=== PATIENT | female | born 1975 | race Caucasian/White ===

== ENCOUNTER 2017-01-18 19:31 | Emergency (ER) | payer OTHER ==
[~2017-01-18] VITALS: Ht 170.2 cm; Wt 72.6 kg
[2017-01-18 19:34] VITALS: BP 137/69
--- NOTE | 2017-01-18 19:42 | PHYS DOC ---
Adult General Chief Complaint Chief Complaint: WOUND CHECK HPI HPI Patient is a 41 year old female presents the ED complaining of injury to right finger 1 day. Patient states yesterday she cut her finger with an envelope and woke up today with drainage and increased redness surrounding the cut. Describes as sharp. Rates as 2/10. Denies decreased ROM, fever, nausea/vomiting , dizziness, abdominal pain, chest pain, shortness breath or weakness. Review of Systems Review of Systems Constitutional: Denies fever or chills [] Eyes: Denies change in visual acuity, redness, or eye pain [] HENT: Denies nasal congestion or sore throat [] Respiratory: Denies cough or shortness of breath [] Cardiovascular: No additional information not addressed in HPI [] GI: Denies abdominal pain, nausea, vomiting, bloody stools or diarrhea [] : Denies dysuria or hematuria [] Musculoskeletal: Denies back pain or joint pain [] Integument: Denies rash or skin lesions [] Neurologic: Denies headache, focal weakness or sensory changes [] Endocrine: Denies polyuria or polydipsia [] Current Medications Current Medications Current Medications Medications (Trade) Dose Ordered Sig/Monica Start Time Stop Time Status Last Admin Dose Admin Tetanus/ Diphtheria Toxoids (Tenivac Syringe) 0.5 ml STK-MED ONCE 01/18/17 19:59 01/18/17 20:08 NV Allergies Allergies Allergies Coded Allergies Type Severity Reaction Last Updated Verified No Known Drug Allergies 01/18/17 No Physical Exam Physical Exam Constitutional: Well developed, well nourished, no acute distress, non-toxic appearance. [] HENT: Normocephalic, atraumatic, bilateral external ears normal, oropharynx moist, no oral exudates, nose normal. [] Eyes: PERRLA, EOMI, conjunctiva normal, no discharge. [] Neck: Normal range of motion, no tenderness, supple, no stridor. [] Cardiovascular:Heart rate regular rhythm, no murmur [] Lungs & Thorax: Bilateral breath sounds clear to auscultation [] Abdomen: Bowel sounds normal, soft, no tenderness, no masses, no pulsatile masses. [] Skin: Warm, dry, no rash. 0.5 CM CUT TO RIGHT DORSAL INDEX FINGER WITH SURROUNDING ERYTEMA AND MILD PURULENT DRAINAGE.[] Back: No tenderness, no CVA tenderness. [] Extremities: No tenderness, no cyanosis, no clubbing, ROM intact, no edema. [] Neurologic: Alert and oriented X 3, normal motor function, normal sensory function, no focal deficits noted. [] Psychologic: Affect normal, judgement normal, mood normal. [] Current Patient Data Vital Signs Vital Signs Date Time Temp Pulse Resp B/P (MAP) Pulse Ox O2 Delivery O2 Flow Rate FiO2 01/18/17 19:34 98.1 115 16 97 Room Air 98.1 EKG EKG [] Radiology/Procedures Radiology/Procedures [] Course & Med Decision Making Course & Med Decision Making Pertinent Labs and Imaging studies reviewed. (See chart for details) []Wound clean and dressed. Will treat outpatient with Bactrim. Tetanus updated in ED. Vitals stable, no acute distress. Discussed follow-up with patient for wound re-evaluation in 3 days. Discussed reasons to return to the ED sooner. Patient understands and agrees with plan. Dragon Disclaimer Dragon Disclaimer This electronic medical record was generated, in whole or in part, using a voice recognition dictation system. Departure Departure Impression: Primary Impression: Cellulitis, finger Disposition: HOME, SELF-CARE Condition: STABLE Referrals: MATT LE MD Patient Instructions: Cellulitis Scripts Sulfamethoxazole/Trimethoprim (BACTRIM DS TABLET) 1 Each Tablet 1 TAB PO BID, #20 TAB Prov: LUZ MARIA KENNEDY 01/18/17 LUZ MARIA KENNEDY Jan 18, 2017 19:42
[2017-01-18] MEDS ORDERED: SULF1TAB24 PO (19:45)
[2017-01-18] MEDS ORDERED: TETANUS AND DIPHTHERIA TOX/PF 0.5 ML DISP.SYRIN. VAX IM ONE ×2 (19:45→19:59)
== END 2017-01-18 20:07 | disposition home or self-care (01) ==
LOC: ER 19:31
DX: L03.011 Cellulitis of right finger (principal)
CPT/HCPCS: 90471; 90714; 99283-25

== ENCOUNTER 2018-10-03 09:57 | Emergency (ER) | payer MEDICAID, OTHER ==
[~2018-10-03] VITALS: Ht 170.2 cm; Wt 77.1 kg
[~2018-10-03 09:57] MED LIST: SULF1TAB24 PO
[2018-10-03] MEDS ORDERED: CLINDAMYCIN 600MG PREMIX 50 ML IV ONE (10:45)
[2018-10-03] MEDS ORDERED: methylPREDNISolone SOD SUCC PF 125 MG/2 ML VIAL. IV ONE ×2 (10:45→12:30)
[2018-10-03] MEDS ORDERED: MORPHINE SULFATE 4 MG/ML VIAL. IV ONE ×2 (10:45→13:00)
[2018-10-03] MEDS ORDERED: IV NORMAL SALINE 1000ML BAG 1,000 ML IV ONE (10:45)
[2018-10-03 11:09] LABS: BASO # 0.1 x10^3/uL (0.0-0.2); BASO % 1 % (0-3); EOS # 0.1 x10^3/uL (0.0-0.7); EOS % 1 % (0-3); HEMATOCRIT 35.3 % (36.0-47.0); HEMOGLOBIN 12.3 g/dL (12.0-15.5); LYMPH # 1.4 x10^3/uL (1.0-4.8); LYMPH % 15 % (24-48); MEAN CORPUSCULAR HEMOGLOBIN 34 pg (25-35); MEAN CORPUSCULAR HGB CONC 35 g/dL (31-37); MEAN CORPUSCULAR VOLUME 97 fL (79-100); MONO # 0.7 x10^3/uL (0.0-1.1); MONO % 7 % (0-9); NEUT # 7.2 x10^3uL (1.8-7.7); NEUT % 76 % (31-73); PLATELET COUNT 239 x10^3/uL (140-400); RED BLOOD COUNT 3.63 x10^6/uL (3.50-5.40); RED CELL DISTRIBUTION WIDTH 12.6 % (11.5-14.5); WHITE BLOOD COUNT 9.5 x10^3/uL (4.0-11.0)
[2018-10-03 11:19] LABS: CREATININE 0.6 mg/dL (0.6-1.0); GFR 110.7; POTASSIUM 3.7 mmol/L (3.5-5.1)
[2018-10-03 11:26] LABS: PROTHROMBIN TIME PATIENT 11.9 SEC (11.7-14.0)
[2018-10-03 11:31] LABS: ALBUMIN 3.4 g/dL (3.4-5.0); TOTAL BILIRUBIN 0.5 mg/dL (0.2-1.0); TOTAL PROTEIN 6.9 g/dL (6.4-8.2)
[2018-10-03] MEDS ORDERED: IOHEXOL 300 MG/ML 100ML VIAL. IV ONE (11:45)
[2018-10-03] MEDS ORDERED: CONTRAST GIVEN. MC PRN (11:45)
[2018-10-03 12:54] VITALS: BP 123/73
--- NOTE | 2018-10-03 12:59 | RAD ---
Maxillofacial CT with contrast TECHNIQUE: Helical CT imaging of the maxilla facial structures with 75 mL Omnipaque 300 intravenous contrast. HISTORY: Infection right mandible. FINDINGS: Extensive dental hardware. There is expansile soft tissue edema at the right face overlying the mandible and buccal mucosa and platysma. No rim-enhancing soft tissue abscess evident. There is mild submandibular adenopathy largest lymph node measuring 2.0 x 0.8 cm. The sublingual space, salivary glands, bufferer spaces, parapharyngeal spaces are unremarkable. Mild right upper lobe 2 jugular chain adenopathy largest measuring 1.7 x 1.0 cm. There is a right mandible second premolar periapical lucency eroding the medullary bone with a small defect of the lateral alveolar cortical bone which may represent periapical abscess contributing to the soft tissue edema. No facial bone fracture. Paranasal sinuses are well aerated. Orbits intact. IMPRESSION: Right mandible second premolar with a periapical lucency of the surrounding bone likely a intraosseous periapical abscess resulting in a small defect of the lateral alveolar cortex. There is overlying soft tissue edema and swelling likely cellulitis. No soft tissue abscess evident. There is mild right segment irregular jugular chain adenopathy. Electronically signed by: Abhinav Aguilar MD (10/03/2018 12:56 PM) [facility]
--- NOTE | 2018-10-03 13:11 | PHYS DOC ---
Past Medical History Past Medical History: Anxiety, Arthritis, Other Additional Past Medical Histor: psoriasis (SAILAJA ALLEN APRN) Past Surgical History: (SAILAJA ALLEN APRN) Alcohol Use: Occasionally Drug Use: None (SAILAJA ALLEN APRN) Adult General Chief Complaint Chief Complaint: DENTAL PROBLEM HPI HPI 42-year-old female presents to ER via POV for complaints of right lower dental infection concerns for abscess. Patient states symptoms started yesterday she woke with significant swelling to right lower face into right jaw. Patient den ies fever, nausea or vomiting, or difficulty swallowing. She denies any throat pain or shortness of air. Patient reports she had an old penicillin prescription at home so she took 2 doses of that. (SAILAJA ALLEN APRN) Review of Systems Review of Systems Constitutional: Denies fever or chills [] Eyes: Denies change in visual acuity, redness, or eye pain [] HENT: Denies nasal congestion or sore throat [] Respiratory: Denies cough or shortness of breath [] Cardiovascular: No additional information not addressed in HPI [] GI: Denies abdominal pain, nausea, vomiting, bloody stools or diarrhea [] : Denies dysuria or hematuria [] Musculoskeletal: Denies back pain or joint pain [] Integument: Denies rash or skin lesions [] Neurologic: Denies headache, focal weakness or sensory changes [] Endocrine: Denies polyuria or polydipsia [] All other systems were reviewed and found to be within normal limits, except as documented in this note. (SAILAJA ALLEN APRN) Current Medications Current Medications Current Medications Medications (Trade) Dose Ordered Sig/Monica Start Time Stop Time Status Last Admin Dose Admin Clindamycin Phosphate 50 ml @ 100 mls/hr 1X ONCE 10/03/18 10:45 10/03/18 11:14 DC 10/03/18 11:09 100 MLS/HR Info (CONTRAST GIVEN -- Rx MONITORING) 1 each PRN DAILY PRN 10/03/18 11:45 10/03/18 13:56 DC Iohexol (Omnipaque 300 Mg/ml) 75 ml 1X ONCE 10/03/18 11:45 10/03/18 11:46 DC 10/03/18 11:45 75 ML Methylprednisolone Sodium Succinate (SOLU-Medrol 125MG VIAL) 125 mg 1X ONCE 10/03/18 12:30 10/03/18 12:30 DC Morphine Sulfate (Morphine Sulfate) 4 mg 1X ONCE 10/03/18 13:00 10/03/18 13:01 DC 10/03/18 13:03 4 MG Sodium Chloride 1,000 ml @ 1,000 mls/hr 1X ONCE 10/03/18 10:45 10/03/18 11:44 DC 10/03/18 11:11 1,000 MLS/HR (ELLI CHURCHILL MD) Allergies Allergies Allergies Coded Allergies Type Severity Reaction Last Updated Verified No Known Drug Allergies 01/18/17 No (ELLI CHURCHILL MD) Physical Exam Physical Exam Constitutional: Well developed, well nourished, no acute distress, non-toxic appearance. [] HENT: Normocephalic, atraumatic, oropharynx moist, no oral exudates, nose normal. Rt lower face along jaw line swelling- no erythema. Inner rt side cheek swelling mild erythema- no palp. abscess along rt lower gum line. No obvious dental infection. Lower palate soft without palp. abscess. No pharyngeal s welling/erythema- uvula midline. No pooling of secretions Eyes: PERRLA, no orbital swelling, conjunctiva normal, no discharge. [] Neck: Normal range of motion, no nuchal rigidity, supple, no stridor. Palp. submandibular adenopathy- tender on palp. Trachea midline Cardiovascular: Heart rate regular rhythm, no murmur [] Lungs & Thorax: Bilateral breath sounds clear to auscultation- resp. equal/nonlabored Abdomen: Bowel sounds normal, soft, no tenderness Skin: Warm, dry, no rash. [] Back: No tenderness, no CVA tenderness. [] Extremities: No tenderness, no cyanosis, no clubbing, ROM intact, no edema. [] Neurologic: Alert and oriented X 3, normal motor function, normal sensory function, no focal deficits noted. [] Psychologic: Affect normal, judgement normal, mood normal. [] (REFFITT,SAILAJA Nguyen APRN) Current Patient Data Vital Signs Vital Signs Date Time Temp Pulse Resp B/P (MAP) Pulse Ox O2 Delivery O2 Flow Rate FiO2 10/03/18 13:03 18 100 Room Air 10/03/18 12:54 96 123/73 (90) 10/03/18 10:53 98.7 98.7 (ELLI CHURCHILL MD) Lab Values Laboratory Tests Test 10/03/18 10:30 White Blood Count 9.5 x10^3/uL (4.0-11.0) Red Blood Count 3.63 x10^6/uL (3.50-5.40) Hemoglobin 12.3 g/dL (12.0-15.5) Hematocrit 35.3 % (36.0-47.0) L Mean Corpuscular Volume 97 fL (79-100) Mean Corpuscular Hemoglobin 34 pg (25-35) Mean Corpuscular Hemoglobin Concent 35 g/dL (31-37) Red Cell Distribution Width 12.6 % (11.5-14.5) Platelet Count 239 x10^3/uL (140-400) Neutrophils (%) (Auto) 76 % (31-73) H Lymphocytes (%) (Auto) 15 % (24-48) L Monocytes (%) (Auto) 7 % (0-9) Eosinophils (%) (Auto) 1 % (0-3) Basophils (%) (Auto) 1 % (0-3) Neutrophils # (Auto) 7.2 x10^3uL (1.8-7.7) Lymphocytes # (Auto) 1.4 x10^3/uL (1.0-4.8) Monocytes # (Auto) 0.7 x10^3/uL (0.0-1.1) Eosinophils # (Auto) 0.1 x10^3/uL (0.0-0.7) Basophils # (Auto) 0.1 x10^3/uL (0.0-0.2) Prothrombin Time 11.9 SEC (11.7-14.0) Prothrombin Time INR 0.9 (0.8-1.1) Maternal Serum HCG Beta Subunit < 1 mIU/mL (0-5) Sodium Level 139 mmol/L (136-145) Potassium Level 3.7 mmol/L (3.5-5.1) Chloride Level 103 mmol/L (98-107) Carbon Dioxide Level 27 mmol/L (21-32) Anion Gap 9 (6-14) Blood Urea Nitrogen 6 mg/dL (7-20) L Creatinine 0.6 mg/dL (0.6-1.0) Estimated GFR (Cockcroft-Gault) 110.7 BUN/Creatinine Ratio 10 (6-20) Glucose Level 106 mg/dL (70-99) H Lactic Acid Level 0.6 mmol/L (0.4-2.0) Calcium Level 9.0 mg/dL (8.5-10.1) Magnesium Level 2.0 mg/dL (1.8-2.4) Total Bilirubin 0.5 mg/dL (0.2-1.0) Aspartate Amino Transferase (AST) 15 U/L (15-37) Alanine Aminotransferase (ALT) 21 U/L (14-59) Alkaline Phosphatase 74 U/L (46-116) Total Protein 6.9 g/dL (6.4-8.2) Albumin 3.4 g/dL (3.4-5.0) Albumin/Globulin Ratio 1.0 (1.0-1.7) Laboratory Tests 10/03/18 10:30 Laboratory Tests 10/03/18 10:30 Microbiology 10/03/18 Blood Culture - Preliminary, Resulted NO GROWTH AFTER 2 DAYS (ELLI CHURCHILL MD) EKG EKG [] (SAILAJA ALLEN APRN) Radiology/Procedures Radiology/Procedures PROCEDURE: CT MAXILLOFACIAL W/CONTRAST Maxillofacial CT with contrast TECHNIQUE: Helical CT imaging of the maxilla facial structures with 75 mL Omnipaque 300 intravenous contrast. HISTORY: Infection right mandible. FINDINGS: Extensive dental hardware. There is expansile soft tissue edema at the right face overlying the mandible and buccal mucosa and platysma. No rim-enhancing soft tissue abscess evident. There is mild submandibular adenopathy largest lymph node measuring 2.0 x 0.8 cm. The sublingual space, salivary glands, call center operator spaces, parapharyngeal spaces are unremarkable. Mild right upper lobe 2 jugular chain adenopathy largest measuring 1.7 x 1.0 cm. There is a right mandible second premolar periapical lucency eroding the medullary bone with a small defect of the lateral alveolar cortical bone which may represent periapical abscess contributing to the soft tissue edema. No facial bone fracture. Paranasal sinuses are well aerated. Orbits intact. IMPRESSION: Right mandible second premolar with a periapical lucency of the surrounding bone likely a intraosseous periapical abscess resulting in a small defect of the lateral alveolar cortex. There is overlying soft tissue edema and swelling likely cellulitis. No soft tissue abscess evident. There is mild right segment irregular jugular chain adenopathy. Electronically signed by: Anthony Aguilar MD (10/03/2018 12:56 PM) [facility] DICTATED and SIGNED BY: ANTHONY AGUILAR MD DATE: 10/03/18 5016 (SAILAJA ALLEN APRN) Course & Med Decision Making Course & Med Decision Making Pertinent Labs and Imaging studies reviewed. (See chart for details) 1315: Pt had labs and CT obtained. WBCs normal limits at 9.5 along with lactic acid normal at 0.6. Patient was given IV fluids, pain medication, and IV clindamycin while in the ER. CT report of "Right mandible second premolar with a periapical lucency of the surrounding bone likely a intraosseous periapical abscess resulting in a small defect of the lateral alveolar cortex. There is overlying soft tissue edema and swelling likely cellulitis". Discussed pt's case/test results and plan of care with Dr. Churchill- he went to bedside for re- eval. and to discuss test results. Patient has had some improvement in swelling and reports pain has improved knowing treatments received. Dr. Churchill's reevaluation and even with improved swelling there was no drainable abscess visible/palp. on his exam. Patient does have a dentist she can follow up with this week for reevaluation and further care. Patient with improved symptoms is comfortable with home discharge plan versus admission. Will provide patient with prescription for clindamycin and [place] for pain. Patient advised on increasing fluid intake, smoking cessation, use of [id number] ibuprofen, and signs and symptoms to return to ER for. Discharge instructions were discussed. At time of discharge patient was in no visible distress she has been eating and drinking without difficulty. (SAILAJA ALLEN APRN) Course & Med Decision Making Staff Physician Addendum: I was working in the ER during the course of this patient's visit. I was available for consultation as needed, I did see this patient I did not see an obvious drainable abscess I gave good return precautions and advised follow-up with a dentist as soon as possible. (ELLI CHURCHILL MD) Dragon Disclaimer Dragon Disclaimer This electronic medical record was generated, in whole or in part, using a voice recognition dictation system. (SAILAJA ALLEN APRN) Departure Departure Impression: Primary Impression: Dental infection Referrals: NO PCP (PCP) Patient Instructions: Dental Abscess Additional Instructions: Drink plenty of water daily. Avoid smoking. Over the counter ibuprofen as directed on container as needed. Cool compress to facial swelling every 3-4 hours for 20-30 minutes at a time. Call as soon as possible for dental appointment for reevaluation and further care. Scripts Clindamycin Hcl (CLINDAMYCIN HCL) 300 Mg Capsule 1 CAP PO TID, #30 CAP 0 Refills Prov: SAILAJA ALLEN APRN 10/03/18 Hydrocodone/Apap 5-325 (NORCO 5-325 TABLET) 1 Each Tablet 1-2 TAB PO Q4-6HRS, #12 TAB 0 Refills No driving or drinking alcohol while taking this medicine Prov: SAILAJA ALLEN APRN 10/03/18 SAILAJA ALLEN APRN Oct 03, 2018 13:11 ELLI CHURCHILL MD Oct 05, 2018 18:11
[2018-10-03] MEDS ORDERED: HYDR-3164 PO (13:33)
[2018-10-03] MEDS ORDERED: CLIN300C8 PO (13:33)
== END 2018-10-03 13:40 | disposition home or self-care (01) ==
LOC: ER 09:57
DX: K04.7 Periapical abscess without sinus (principal)
CPT/HCPCS: 36415; 70487; 80053; 83605; 83735; 84702; 85025; 85610; 87040; 96365; 96375; 96376; 99285; J2270; J2930; J3490; J7030; Q9967